=== PATIENT | female | born 1995 | race Caucasian/White ===

== ENCOUNTER 2022-09-01 20:32 | Emergency (ER) | payer OTHER ==
[~2022-09-01] VITALS: Ht 157.5 cm; Wt 81.6 kg
[2022-09-01 21:25] VITALS: BP 141/77
[2022-09-01 21:31] VITALS: BP 141/77
--- NOTE | 2022-09-01 22:00 | NUR ---
PT TO BED #1
--- NOTE | 2022-09-01 22:12 | NUR ---
27 Y/O F PRESENTS WITH VAGINAL BLEEDING XYESTERDAY WITH CRAMPING AND BLOATING. PT STATES "I STARTED TO HAVE SPOTTING AND TODAY I HAD MORE BLOOD WITH BLOOD CLOTS." PT DENIES ANY NVD. PT IS A&OX4, SKIN INTACT, RESPIRATIONS EVEN AND UNLABORED. PT DENIES ANY PAIN AT THE MOMENT. PMH- PT DENIES NKA
[2022-09-01 23:00] LABS: BASOPHILS % (AUTO) 0.4 % (0.0-2.0); EOSINOPHILS % (AUTO) 0.2 % (0.0-4.0); LYMPHOCYTES # (AUTO) 2.4 K/uL (2.5-16.5); MEAN CORPUSCULAR HEMOGLOBIN 31 pg (27-31); MEAN CORPUSCULAR HGB CONC 34 g/dL (33-37); MEAN CORPUSCULAR VOLUME 89.9 fL (80-94); MONOCYTES # (AUTO) 0.7 K/uL (0.8-1.0); MONOCYTES % (AUTO) 8.6 % (1.7-9.3); NEUTROPHILS # (AUTO) 5.2 K/uL (1.8-7.7); NEUTROPHILS % (AUTO) 61.8 % (42.2-75.2); PLATELET COUNT (AUTO) 252 K/uL (140-450); RED BLOOD CELL COUNT(AUTO) 4.56 MIL/uL (4.20-5.40); RED CELL DISTRIBUTION WIDTH 13.1 % (11.6-13.7); WHITE BLOOD COUNT (AUTO) 8.4 K/uL (4.8-10.8)
[2022-09-01 23:06] LABS: APPEARANCE,URINE CLEAR (CLEAR); BILIRUBIN,URINE NEGATIVE (NEGATIVE); BLOOD, URINE 3+ (NEGATIVE); COLOR,URINE RED (YELLOW); LEUKOCYTE ESTERASE ,URINE 2+ (NEGATIVE); NITRITE, URINE NEGATIVE (NEGATIVE); UGLUCOSE NEGATIVE (NEGATIVE)
--- NOTE | 2022-09-01 23:08 | NUR ---
Fadi hough in [facility] - 09/01/22 at 2314 by [email or web address] PT TO BED #1
[2022-09-01 23:20] LABS: WBC,URINE 0-5 /HPF (0-5)
--- NOTE | 2022-09-01 23:38 | NUR ---
ULTRASOUND AT BEDSIDE
[2022-09-02] MEDS ORDERED: CEPH-588 PO (01:19)
--- NOTE | 2022-09-02 01:49 | NUR ---
Patient discharged with v/s stable. Written and verbal after care instructions given and explained. Patient alert, oriented and verbalized understanding of instructions. Ambulatory with steady gait. All questions addressed prior to discharge. ID band removed. Patient advised to follow up with PMD. Rx of cEPHALEXIN given. Opportunity to ask questions provided and answered.
== END 2022-09-02 01:49 | disposition home or self-care (01) ==
LOC: MED 20:32
DX: O03.9 Complete or unspecified spontaneous abortion without complication (principal); O23.41 Unspecified infection of urinary tract in pregnancy, first trimester; Z3A.01 Less than 8 weeks gestation of pregnancy; Z79.2 Long term (current) use of antibiotics
CPT/HCPCS: 36415; 76817; 81001; 81025; 84702; 85025; 86900; 86901; 87086; 93976; 99284; Q0092; 99283